=== PATIENT | female | born 1955 | race Caucasian/White ===

== ENCOUNTER → 2022-06-16 | Outpatient (CLI) | payer MEDICARE ==
[2022-06-16 16:38] LABS: INR 0.9 (<1.2); Partial Thromboplastin Time 25.9 sec (22.0-30.0)
[2022-06-17 02:02] LABS: Appearance,Urine Clear (Clear); Bilirubin,Urine Negative (Negative); Blood,Urine Negative (Negative); Color,Urine Yellow (Yellow); Ketones,Urine Negative (Negative); Nitrite,Urine Negative (Negative); Specific Gravity,Urine 1.022 (1.001-1.030); Urobilinogen,Urine 0.2 (0.2,1.0)
[2022-06-17 02:24] LABS: HCT 42.3 % (37.2-46.3); HGB 13.7 g/dL (12.0-15.0); MCH 30.1 pg (27.0-32.0); MCHC 32.4 g/dL (32.0-37.0); NRBC Per 100 WBC 0 /100 WBCS (0.0-0.0); Platelet Count 291 X 10*3/uL (140-440); RBC 4.55 X 10*6/uL (4.10-5.20); RDW 12.8 % (11.5-14.5); WBC 7.04 X 10*3/uL (4.50-10.00)
[2022-06-17 02:42] LABS: ALT 24 U/L (8-44); AST 25 U/L (13-35); African American GFR (CKD) 105.4 (60.0-200.0); Albumin 4.9 g/dL (3.8-4.9); Albumin/Globulin Ratio 1.53 (1.60-3.17); Alkaline Phosphatase 74 U/L (41-126); BUN/Creat Ratio 22.14 Ratio (12.00-20.00); Blood Urea Nitrogen 15.5 mg/dL (9.0-27.0); Calcium 10.3 mg/dL (8.7-10.3); Carbon Dioxide 24.9 mmol/L (20.0-27.5); Chloride 103 mmol/L (96-109); Chol/HDL Ratio 5.06 Ratio; Globulin 3.2 g/dL (1.6-3.3); Glucose 81 mg/dL (70-110); LDL Cholesterol,Calculated 123.4 mg/dL (0.0-131.0); Non-African American GFR(CKD) 90.9 (60.0-200.0); Potassium 4.6 mmol/L (3.5-5.5); Sodium 141 mmol/L (135-145); Total Protein 8.1 g/dL (6.2-8.2)
== END | disposition home or self-care (01) ==
LOC: LABPAT 14:18
PROVIDERS: ATTEND Orthopaedic Surgery
DX: Z01.818 Encounter for other preprocedural examination (principal); R73.09 Other abnormal glucose; E78.2 Mixed hyperlipidemia
CPT/HCPCS: 80053; 80061; 81003; 83036; 85027; 85610; 85730; 87070; 93005

== ENCOUNTER 2022-06-24 14:05 | Day surgery (SDC) | payer MEDICARE ==
[~2022-06-24 14:05] MED LIST: ACETAMINOPHEN TAB 500 MG TAB PO PRN; DEXAMETHASONE SOD PHOSPHATE 10 MG/ML 1 ML VIAL IV PRN; DOCUSATE 100 MG CAP PO PRN; FAMOTIDINE 20 MG/2 ML VIAL IVP PRN; HYDROmorphone 0.5 MG/0.5 ML SYRINGE IVP PRN; KETOROLAC 15 MG/ML 1 ML VIAL IVP PRN; LIDOCAINE 1% (10MG/ML) FOR IV START INTRADERMA PRN; MIDAZOLAM 2 MG/2 ML VIAL IV PRN; ONDANSETRON 4 MG/2 ML VIAL IVP PRN; ROPIVACAINE/EPI/CLONIDINE/KET 50 ML SYRINGE MISCELLANE PRN; TRANEXAMIC ACID IN NACL,ISO-OS 1,000 MG in SALINE 1 100ML.BAG IV PRN; TRANEXAMIC ACID IN NACL,ISO-OS 1,000 MG in SALINE 1 100ML.BAG IVPB PRN; VANCOMYCIN 1,500 MG in SODIUM CHLORIDE 0.9% 500 ML 500 ML IVPB ONE; fentaNYL (PF) 50 MCG/ML 2 ML AMP IVP PRN; oxyCODONE ER 10 MG TAB.ER.12H PO PRN
[2022-06-24] MEDS: LACTATED RINGERS 1,000 ML IV SCH ×2 (14:45→14:54)
[2022-06-24] MEDS ORDERED: fentaNYL (PF) 50 MCG/ML 2 ML AMP IVP ONE (15:12)
[2022-06-24] MEDS ORDERED: MIDAZOLAM 2 MG/2 ML VIAL IVP ONE (15:12)
--- NOTE | 2022-06-24 15:46 | P.ANPRN ---
Procedure Note - Anesthesia - Nerve Block Performed Left Irvin Single Date of Procedure: 06/24/22 Procedure Start Time: 15:11 Procedure Stop Time: 15:21 Location of Patient: PreOp Indication: Acute Post-Operative Pain, Requested by Surgeon Sedation Type: Sedate with meaningful contact maintained Preparation: Sterile Prep Position: Supine Catheter: None Needle Types: Facet Needle Gauge: 21 Ultrasound used to visualize needle placement: Yes Ultrasound used to observe medication spread: Yes Injectate: 0.5% Ropivacaine (see comment for volume) (20 mls) Blood Aspirated: No Pain Paresthesia on Injection Noted: No Resistance on Injection: Normal Image Stored and Saved: Yes Events: Uneventful and Well Tolerated
[2022-06-24] MEDS ORDERED: HYDROmorphone (PF) 1 MG/ML ONE (16:42)
[2022-06-24] MEDS ORDERED: ROPIVACAINE 5 MG/ML 30 ML VIAL ONE (16:42)
[2022-06-24] MEDS ORDERED: TRANEXAMIC ACID IN NACL,ISO-OS 1,000 MG/100 ML BAG ONE (16:42)
[2022-06-24] MEDS ORDERED: SODIUM CHLORIDE 0.9% (PF) 10 ML VIAL ONE (16:42)
[2022-06-24] MEDS ORDERED: SUCCINYLCHOLINE CHLORIDE 200 MG/10 ML VIAL IV ONE (16:42)
[2022-06-24] MEDS ORDERED: MIDAZOLAM 2 MG/2 ML VIAL ONE (16:42)
[2022-06-24] MEDS ORDERED: ROCURONIUM 10 MG/ML (5 ML VIAL) IV ONE (16:42)
[2022-06-24] MEDS ORDERED: PROPOFOL 10 MG/ML 20 ML VIAL IV ONE (16:42)
[2022-06-24] MEDS ORDERED: GLYCOPYRROLATE 0.2 MG/ML 2 ML VIAL ONE (16:42)
[2022-06-24] MEDS ORDERED: ePHEDrine 50 MG/ML 1 ML VIAL ONE (16:42)
[2022-06-24] MEDS ORDERED: fentaNYL (PF) 50 MCG/ML 2 ML AMP ONE (16:42)
[2022-06-24] MEDS ORDERED: LIDOCAINE 2% INJ 20 MG/ML (2 ML VIAL) ONE (16:42)
[2022-06-24] MEDS ORDERED: NEOSTIGMINE 1 MG/ML 10 ML VIAL ONE (16:42)
[2022-06-24] MEDS ORDERED: HYDROmorphone 0.5 MG/0.5 ML SYRINGE IVP PRN ×3 (19:25)
[2022-06-24] MEDS ORDERED: HYDROcodone/APAP 5-325MG 1 EACH TAB PO PRN (19:25)
[2022-06-24] MEDS ORDERED: hydrOXYzine pamoate 25 MG CAP PO PRN (19:25)
[2022-06-24] MEDS ORDERED: NALOXONE 0.4 MG/ML 1 ML VIAL IV PRN (19:25)
[2022-06-24] MEDS ORDERED: LACTATED RINGERS 1,000 ML IV SCH (19:30)
--- NOTE | 2022-06-24 19:33 | FL ---
Intraoperative/procedural fluoroscopic services were provided. Total fluoroscopy time is 43 seconds w ith a total of 8 submitted images to PACS. Please see the operative/procedural note for further detai ls. DAP: 2.4030
[2022-06-24 19:38] VITALS: RESP 16
[2022-06-24] MEDS ORDERED: SENNOSIDES-DOCUSATE SODIUM 1 EACH TAB PO SCH (21:00)
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
--- NOTE | 2022-06-24 21:08 | P.OP ---
Date of Procedure: 06/24/22 Preoperative Diagnosis: 1. Severe left hip osteoarthritis 2. BMI 35.2 3. Hypertension Postoperative Diagnosis: Same Procedure(s) Performed: 1. Left direct anterior total hip replacement 2. Application of negative pressure wound dressing, left hip, less than 50 cm, incision measuring 20 cm (an incisional wound VAC was used to the patient's BMI over 35 and her body habitus) Implants: 1. Mari Trident II Acetabular Cup, Size #48 2. [place] Insignia Size # 5 Femoral Stem, Standard Offset 3. Biolox delta femoral head, 36 mm, - 2.5 neck Anesthesia: NELI, regional Surgeon: Oral Farmer Heat Treat Supervisor #1: Emilia Chang Estimated Blood Loss (ml): 500 IV fluids (ml): 1,000 Pathology: none sent Condition: stable Disposition: PACU Indications for Procedure: I had a long discussion with the patient in the office on the potential risks and complications of an elective total hip replacement through a direct anterior approach. Risks discussed include, but are certainly not limited to, risks from anesthesia, superficial infection requiring local wound care or antibiotics, deep catracho-prosthetic joint infection and the treatment required to eradicate infection, intraoperative fracture, postoperative periprosthetic fracture, damage to local blood vessels or nerves particularly the lateral femoral cutaneous nerve, delayed wound healing requiring local wound care or possibly surgical debridement, hip dislocation, leg length discrepancy, soft tissue irritation around the total hip implant such as iliopsoas tendinitis or trochanteric bursitis, wear and osteolysis from the implants, squeaking or audible noises, groin pain, thigh pain, heterotopic ossification, stiffness, aseptic loosening of the implants, dissatisfaction with surgical outcome, need for revision surgery, DVT, PE, swelling of the operative extremity, acute coronary event, stroke, failure to thrive, and possibly loss of life or limb. The patient understands that while these are the most common complications after an elective hip replacement there are certainly other less common complications possible. They were given ample time to ask questions regarding the potential complications of a hip replacement. Following our discussion the patient provided their verbal and written consent to go forward with an elective total hip replacement. Operative Findings: Severe left hip posterior arthritis Description of Procedure: The patient was identified in the preoperative holding area and the correct hip was marked with my initials. I reviewed the procedure and consent with the patient. All of their questions were answered. The patient was then brought back into the operating room by anesthesia. While on the [facility] anesthesia was administered by the anesthesia team. Preoperative antibiotics and tranexamic acid were also given. After the patient was under anesthesia I examined their ankles to determine their preoperative leg length discrepancy. The skin over the anterior aspect of the hip was shaved to remove hair over the site of planned incision. Both feet and ankles were padded with webril and boots for the [place] were applied. The patient was then carefully transferred onto the [place] table. A perineal post was immediately placed. The arms were placed on arm holders and were well-padded. Both boots were secured to the spars on the [place] table. The patient was positioned so that the pelvis was centered over the post. Nonsterile drapes were applied. A timeout was performed identifying the correct patient, operative extremity, and procedure. At this point fluoroscopy was brought in to take preoperative images of the pelvis and operative hip. Using the standing AP pelvis from the office as a template, a comparable image was obtained with fluoroscopy. A metallic bar was used to create a bi-ischial line for use as a reference to leg length adjustments during the procedure. Global offset was also measured on both the operative and nonoperative leg. Fluoroscopy was then brought out and a pre-scrub using a chlorhexidine scrub brush was performed. The operative limb was then prepped and draped in the standard sterile fashion. An anterior longitudinal incision was made lateral and distal to the ASIS. The skin and subcutaneous tissues were incised sharply. The underlying tensor fascia was identified and incised in its midportion. The fascia was dissected free from the underlying muscle and the muscle belly was retracted. A blunt tipped cobra retractor was placed over the superior neck under the muscle fibers of the gluteus minimus. The deep enveloping fascia of the tensor was incised. The anterior leash of vessels were then identified and cauterized. The fascia between the rectus and the capsule was then incised and the pre-capsular fat was excised. A second Cobra was placed inferior to the neck. The interval between the rectus and iliocapsularis and the hip capsule was developed and a retractor was placed carefully over the anterior rim of the acetabulum. A T-shaped anterior capsulotomy was performed. The superior capsular leaflet was left in place in the inferior capsular flap was excised. The Cobra retractors were placed intracapsularly. We then made a femoral neck osteotomy according to preoperative and intraoperative templating and confirmed the level of the osteotomy using fluoroscopic imaging. The femoral head was removed, passed off to the back table, and sized. The superior capsular flap was excised. Retractors were placed circumferentially exposing the acetabulum. We then circumferentially debrided the acetabulum free of labrum and osteophytes. The pulvinar was removed to fully visualize the cotyloid fossa. We then sequentially reamed to achieve peripheral fit and excellent bleeding subchondral bone. The socket was thoroughly irrigated. The acetabular component was impacted into the appropriate position using fluoroscopy to guide version, inclination, and depth of insertion taking care to have a comparable image of the AP pelvis to the standing image taken in the office. An excellent press-fit was achieved and final position was confirmed using fluoroscopy. The press fit was augmented with bony cancellus dome screws. The liner was then impacted into the socket. Attention was then turned to the femur. The remnant dorsal lateral capsule was excised. The short external rotators were visible and protected. A bone hook was used to confirm appropriate translation of the trochanter away from the acetabulum. The leg was then extended and adducted and the bone hook was used to elevate the femur for broaching. A box osteotome and blunt tipped canal sound was then utilized to gain access to the femoral canal. We then sequentially broached the femur in appropriate anteversion until excellent torsional stability was achieved. The neck cut was brought flush to the trial broach with a calcar planar. A trial neck and head were then placed onto the broach and the hip was atraumatically reduced under direct visualization. External rotation to 90 was performed to assess stability. Fluoroscopy was brought in. An AP and lateral fluoroscopic image of the proximal femur was obtained to assess position and fill of the trial broach. An AP of the pelvis was then obtained and matched to the preoperative image taken. A bi-ischial bar was then placed and measurements were taken to assess changes in length and offset. The hip was then carefully dislocated, the proximal femur was exposed, and the trial implants were removed. The wound and proximal femur was thoroughly irrigated using sterile saline and pulsatile lavage. The final femoral implant was dispensed and gently tapped into place generating an excellent press-fit. The trunnion was cleansed and the final head was tapped into place to engage the Lozada taper. The acetabulum was irrigated and visualized to be free of debris. The hip was carefully reduced. Stability was checked clinically with external rotation to 90 and there was no evidence of instability. Final fluoroscopic images were taken. The wound was then thoroughly irrigated and soaked with a dilute Betadine rinse for 3 minutes. 3 L of sterile saline was irrigated through the wound using pulsatile lavage. Local anesthetic cocktail was injected into the soft tissues around the surgical field. A deep drain was placed. The wound was then closed in layers. Due to the patient's body habitus and BMI 35 an incisional wound VAC was placed after the wound was closed. A drain sponge and dressing was also applied. The drapes were taken down and the patient was carefully transferred off of the [place] table. Following removal of the boots the leg lengths felt acceptable. The patient was then taken to recovery room having tolerated the procedure well. Emilia Chang PA-C was required as a skilled physician assistant certified for patient positioning, surgical exposure, retraction, placement of implants, and closure of the surgical wound. PLAN: The patient can weight-bear as tolerated on the operative extremity. 2 doses of postoperative antibiotics. DVT prophylaxis with aspirin 81 mg twice a day based on preoperative risk stratification. Physical therapy for gait training. Discontinue drain postoperative day #1 if output is less than 100 mL per shift. Incisional wound VAC will be left in place for 2 weeks. Due to the patient's BMI 35 an body habitus she'll be discharged home on doxycycline.
[2022-06-24] MEDS: ASPIRIN 81 MG PO SCH (22:44)
[2022-06-25] MEDS: HYDROcodone/APAP 5-325MG 1 EACH TAB PO PRN ×2 (01:07→08:25)
[2022-06-25 06:58] LABS: Basophils % (A) 0 %; Eosinophils % (A) 0 %; HCT 30.8 % (34.0-46.0); HGB 10.3 gm/dL (11.4-16.0); Lymphocytes # (A) 0.9 k/uL (1.0-4.8); Lymphocytes % (A) 8 %; MCH 30.1 pg (25.0-35.0); MCHC 33.5 g/dL (31.0-37.0); Mean Platelet Volume 7.9; Monocytes # (A) 0.4 k/uL (0-1.0); Monocytes % (A) 4 %; Neutrophils # (A) 10.6 k/uL (1.3-7.7); Neutrophils % (A) 89 %; Platelet Count 255 k/uL (150-450); RBC 3.43 m/uL (3.80-5.40); RDW 13.1 % (11.5-15.5); WBC 11.9 k/uL (3.8-10.6)
[2022-06-25 07:34] VITALS: BP 130/77; PULSE 79; TEMP 98.8
[2022-06-25] MEDS: ASPIRIN 81 MG PO SCH (08:23)
--- NOTE | 2022-06-25 13:13 | P.CONS ---
History of Present Illness - Reason for Consult Consult date: 06/25/22 medical management Requesting physician: Oral Farmer - History of Present Illness Notified of medical consult at 8:45 AM on 06/25/22. History of Presenting Illness: Patient is a very pleasant 66-year-old female with a past medical history of hypertension, GERD, and osteoarthritis. patient is currently status post left cataract anterior total hip replacement completed by Dr. Farmer on 06/24/22 secondary to severe left hip osteoarthritis. We were consulted for medical evaluation and consultation throughout patient's hospitalization. patient seen and fully evaluated at bedside this morning. Patient sitting up in the chair and currently reports controlled postoperative pain. She denies having any po stoperative nausea, vomiting, headache, lightheadedness, chest pain, palpitations, shortness of breath, cough or congestion, or experiencing any numbness/tingling/focal weakness in her extremities. Patient reports working with PT this morning and doing well. Patient's daughter at bedside. Vital signs reviewed and stable with morning blood pressure 130/77, heart rate 79, respiratory rate 16, and SpO2 of 94% on room air with temperature 98.8F.. Review of systems: Pertinent positives and negatives as discussed in HPI, a complete review of systems was performed and all other systems are negative. Physical exam: Vital signs reviewed and stable. General: Nontoxic, no distress and appears stated age. Derm: Skin warm and dry, normal coloration for ethnicity. Head: Atraumatic, normocephalic and symmetric. Eyes: EOMs intact, no lid lag, and anicteric sclera Mouth: no lip lesions, mucus membranes moist Cardiovascular: regular rate and rhythm with normal S1S2, no murmur, positive posterior tibial pulses bilaterally, and cap refill < 2 seconds. Lungs: Respirations even, regular, and unlabored on room air. Lungs CTA bilaterally, no rhonchi, no rales, no wheezing, and no accessory muscle usage. Abdominal: soft, nontender to palpation, no guarding, no appreciable organomegaly Ext: ROM intact. No gross muscle atrophy, no edema, no contractures Neuro: Speech clear, face symmetrical and CN II-XII grossly intact with no noted focal neuro deficits Psych: Alert and oriented to person, place, time, and situation. Appropriate and pleasant affect. Assessment and Plan of Care: Postoperative blood loss anemia, expected finding Leukocytosis Hypertension GERD Osteoarthritis Status post left total hip replacement -Reviewed morning labs. CBC showing mild leukocytosis with WBC count of 11.9 which is stable believed to be elevated due to reactive process status post surgical procedure and Postoperative hemoglobin stable at 10.3 with preoperative hemoglobin reviewed in chart resulting at 13.7. patient with no active bleeding therefore no need for interventions and recommend no further testing at this time. -Home medications reviewed and reordered. Recommend patient continuing metoprolol 25 mg daily for management of hypertension, Zetia 10 mg daily for management of hyperlipidemia, and omeprazole 40 mg daily for management of GERD. -Medically, patient stable for discharge once cleared by primary admitting orthopedic surgery team. Discussed with orthopedic surgery PA that patient cleared from medical standpoint for discharge. Discharge med rec completed. -management of left total hip replacement per primary admitting orthopedic surgery team including DVT prophylaxis, pain management, weightbearing, and PT/OT. -Patient currently on DVT prophylaxis with aspirin 81 mg twice daily. Thank you for allowing us to participate in the care of this pleasant patient. Do not hesitate to contact us with questions. Someone can be reached from the [facility] hospitalist group all hours of the day at [phone] or via [employer]. Patient was seen independently by Nurse Practitioner. This document was prepared using [employer] dictation software. Please allow for errors in manager concrete while rare they do occur. Past Medical History Past Medical History: GERD/Reflux, Hypertension, Osteoarthritis (OA) Additional Past Medical History / Comment(s): possible sleep apnea but no sleep study done History of Any Multi-Drug Resistant Organisms: None Reported Past Surgical History: Breast Surgery Additional Past Surgical History / Comment(s): excision infected milk duct left breast, colonoscopy Past Anesthesia/Blood Transfusion Reactions: No Reported Reaction Past Psychological History: Anxiety Smoking Status: Former smoker Past Alcohol Use History: Occasional Additional Past Alcohol Use History / Comment(s): quit smoking 8 yrs. ago, smoked on & off 30 yrs., 1/2-1ppd, 2-3 glasses wine per week Past Drug Use History: Marijuana Additional Drug Use History / Comment(s): 1/3 edible in evening most nights to help sleep - Past Family History Mother Family Medical History: No Reported History Medications and Allergies Home Medications Medication Instructions Recorded Confirmed Type Ezetimibe [Zetia] 10 mg PO DAILY 06/18/22 06/24/22 History Metoprolol Succinate [Metoprolol 25 mg PO DAILY 06/18/22 06/24/22 History Succinate ER] Acetaminophen [Tylenol Arthritis] 650 mg PO Q6H PRN 06/19/22 06/24/22 History Naproxen Sodium [Aleve] 220 mg PO BID PRN 06/19/22 06/24/22 History [place]-3 Acid Ethyl Esters [Lovaza] 2 gm PO DAILY 06/19/22 06/24/22 History Aspirin 81 mg PO BID 30 Days #60 tab 06/25/22 Rx Diclofenac Sodium [Voltaren] 75 mg PO BID 30 Days #60 tab 06/25/22 Rx Docusate [Colace] 100 mg PO BID #60 capsule 06/25/22 Rx HYDROcodone/APAP 5-325MG [[place] 1 - 2 tab PO Q6HR PRN 7 Days #32 06/25/22 Rx 5-325] tab Omeprazole 40 mg PO DAILY 30 Days #30 cap 06/25/22 Rx Allergies Allergy/AdvReac Type Severity Reaction Status Date / Time fenofibrate [From Tricor] AdvReac kidney Verified 06/24/22 14:40 dysfunction Physical Exam Vitals: Vital Signs Temp Pulse Pulse Resp BP BP Pulse Ox 06/25/22 06:55 98.8 F 79 16 130/77 94 L 06/25/22 02:00 97.9 F 76 16 119/68 95 06/25/22 00:34 65 162/80 97 06/25/22 00:33 71 134/65 95 06/25/22 00:32 63 128/72 94 L 06/25/22 00:31 73 118/73 97 06/25/22 00:30 66 104/55 97 06/25/22 00:20 77 103/57 95 06/24/22 19:51 69 16 126/58 98 06/24/22 19:36 65 16 119/55 97 06/24/22 19:21 97.3 F L 72 14 137/61 96 06/24/22 15:30 58 L 16 135/79 98 06/24/22 14:49 97.0 F L 75 16 155/72 95 Intake and Output 06/24/22 06/25/22 06/25/22 22:59 06:59 14:59 Intake Total 1600 Output Total 500 Balance 1100 Intake: IV 1600 Output: Estimated Blood Loss 500 Other: # Voids 5 1 Weight 108 kg Results CBC & Chem 7: 06/25/22 05:30 Labs: Abnormal Lab Results - Last 24 Hours (Table) 06/25/22 Range/Units 05:30 WBC 11.9 H (3.8-10.6) k/uL RBC 3.43 L (3.80-5.40) m/uL Hgb 10.3 L (11.4-16.0) gm/dL Hct 30.8 L (34.0-46.0) % Neutrophils # 10.6 H (1.3-7.7) k/uL Lymphocytes # 0.9 L (1.0-4.8) k/uL
[2022-06-25] MEDS ORDERED: METOPROLOL SUCCINATE (ER) 25 MG TAB.ER.24H PO SCH (13:30)
[2022-06-25] MEDS ORDERED: EZETIMIBE 10 MG TAB PO SCH (13:30)
--- NOTE | 2022-06-25 15:34 | P.DS ---
Providers Expected date of discharge: 06/25/22 Attending physician: Oral Farmer Consults: 06/24/22 19:25 Consult Physician Routine Consulting Provider: Cesar Vyas Consult Reason/Comments: medical management Do you want consulting provider notified?: Yes Primary care physician: Divya Ramirez MD Hospital Course: This is a 66-year-old female who has been followed in our office by Dr. Farmer for continued complaints of left hip pain due to left hip osteoarthritis. Treatment options were discussed, and patient elected to undergo a left direct anterior total hip arthroplasty. Patient was seen pre-operatively by Dr. Ramirez and cleared for surgery. Patient underwent a left direct anterior total hip arthroplasty on 06/24/[address] Farmer. The procedure was performed without complication or sequelae. The patient is doing fairly well postoperatively. Vital signs and labs are stable on postoperative day #1. Patient was examined bedside this morning with Dr. Farmer. Patient states she is overall doing well and the pain in her left hip is well-controlled. She has been ambulating with a walker with minimal assistance. Patient is comfortable being discharged home today. Patient has no new complaints this morning. On examination, the patient is sitting up in bed in no apparent distress. She is alert and orientated 3. On inspection of the left hip, there is a clean, dry, intact Prevena wound vac in place. Hemovac drain is removed bedside during examination. Motor and sensory function is intact of the left lower extremity. Femoral nerve function intact. The dorsalis pedis pulse is easily palpable, the left lower extremity is warm and well perfused with brisk capillary refill. Left calf is soft and non-tender to palpation. Patient is discharged home with home health care today in good condition, pending medical clearance. Patient will follow-up with Dr. Farmer in the office in 2 weeks at [facility]. Please see med rec for accurate list of discharge medication. Plan - Discharge Summary Discharge Rx Participant: Yes New Discharge Prescriptions: New HYDROcodone/APAP 5-325MG [Trinity 5-325] 1 - 2 tab PO Q6HR PRN 7 Days #32 tab PRN Reason: Pain Omeprazole 40 mg PO DAILY 30 Days #30 cap Diclofenac Sodium [Voltaren] 75 mg PO BID 30 Days #60 tab Aspirin 81 mg PO BID 30 Days #60 tab Docusate [Colace] 100 mg PO BID #60 capsule Doxycycline Monohydrate 100 mg PO BID 14 Days #28 cap Continue Ezetimibe [Zetia] 10 mg PO DAILY [place]-3 Acid Ethyl Esters [Lovaza] 2 gm PO DAILY Acetaminophen [Tylenol Arthritis] 650 mg PO Q6H PRN PRN Reason: Pain Metoprolol Succinate [Metoprolol Succinate ER] 25 mg PO DAILY No Action Naproxen Sodium [Aleve] 220 mg PO BID PRN PRN Reason: Pain Discharge Medication List Ezetimibe [Zetia] 10 mg PO DAILY 06/18/22 [History] Metoprolol Succinate [Metoprolol Succinate ER] 25 mg PO DAILY 06/18/22 [History] Acetaminophen [Tylenol Arthritis] 650 mg PO Q6H PRN 06/19/22 [History] Naproxen Sodium [Aleve] 220 mg PO BID PRN 06/19/22 [History] [place]-3 Acid Ethyl Esters [Lovaza] 2 gm PO DAILY 06/19/22 [History] Aspirin 81 mg PO BID 30 Days #60 tab 06/25/22 [Rx] Diclofenac Sodium [Voltaren] 75 mg PO BID 30 Days #60 tab 06/25/22 [Rx] Docusate [Colace] 100 mg PO BID #60 capsule 06/25/22 [Rx] Doxycycline Monohydrate 100 mg PO BID 14 Days #28 cap 06/25/22 [Rx] HYDROcodone/APAP 5-325MG [Trinity 5-325] 1 - 2 tab PO Q6HR PRN 7 Days #32 tab 06/25/22 [Rx] Omeprazole 40 mg PO DAILY 30 Days #30 cap 06/25/22 [Rx] Follow up Appointment(s)/Referral(s): Residential Home,[facility] [NON-STAFF] - 1-2 Days Oral Farmer MD [Medical Doctor] - 07/08/22 10:20 am Patient Instructions/Handouts: Anterior Hip Replacement (DC) Activity/Diet/Wound Care/Special Instructions: Weight bear to tolerance on operative extremity with a walker. Keep Prevena wound vac in place until follow-up in the office. Do not remove. May shower over dressing. Take pain medications as prescribed. Take aspirin 81mg twice a day for blood clot prevention. Follow-up in the office in two weeks at [facility]. Call the office with any questions or concerns, Discharge Disposition: HOME WITH HOME HEALTH SERVICES
== END 2022-06-25 13:57 | disposition home health service (06) ==
LOC: OR 14:05 → 4SSUR 19:17 → OR 06-25 13:57
PROVIDERS: ATTEND Orthopaedic Surgery
DX: M16.12 Unilateral primary osteoarthritis, left hip (principal); E66.9 Obesity, unspecified; Z68.35 Body mass index [BMI] 35.0-35.9, adult; G89.18 Other acute postprocedural pain; I10 Essential (primary) hypertension; E78.5 Hyperlipidemia, unspecified; F10.20 Alcohol dependence, uncomplicated; Z82.49 Family history of ischemic heart disease and other diseases of the circulatory system; Z83.3 Family history of diabetes mellitus; Z87.891 Personal history of nicotine dependence; Z79.1 Long term (current) use of non-steroidal anti-inflammatories (NSAID); Z79.899 Other long term (current) drug therapy
CPT/HCPCS: 27130; 97161; 64447; 86900; 86901; 85025; 86850; 73501; C1776; J2250; J3370; J0330; J2710; J0690 ×2; J2405; J3010; J1170; J2795; J1885; J2704; J2001; 88300

== ENCOUNTER → 2022-10-15 | Outpatient (CLI) | payer MEDICARE ==
--- NOTE | 2022-10-15 13:38 | MM ---
Reason for Exam: Follow-up at short interval from prior study. Last screening mammogram was performed 6 month(s) ago. Patient History: Menarche at age 14. First Full-Term at age 22. Postmenopausal. Paternal aunt had breast cancer. Mother had breast cancer at or over age 50. Risk Values: Chitra 5 year model risk: 3.2%. NCI Lifetime model risk: 11.7%. Tissue Density: Left: The breast tissue is heterogeneously dense. This may lower the sensitivity of mammography. Findings: Analyzed By CAD. Previous areas of desiccation are not significantly changed. Given the stability, back to screening is recommended. No new suspicious masses, calcifications or distortions. Overall Assessment: Benign, BI-RAD 2 Management: Screening Mammogram of both breasts in 6 months. Results were given to the patient verbally at the time of exam. Patient should continue monthly self-breast exams. A clinical breast exam by your physician is recommended on an annual basis. This exam should not preclude additional follow-up of suspicious palpable abnormalities. Note on Chitra scores and lifetime risk: 1. A Chitra score greater than 3% is considered moderate risk. If this is the case, consider specialist referral to assess eligibility for a risk reducing agent. 2. If overall lifetime risk for the development of breast cancer is 20% or higher, the patient may qualify for future screening with alternating mammogram and breast MRI. Electronically signed and approved by: Danish Vincent DO
== END | disposition home or self-care (01) ==
LOC: RADMAMWWP 13:01
PROVIDERS: ATTEND Internal Medicine
DX: R92.8 Other abnormal and inconclusive findings on diagnostic imaging of breast (principal); Z78.0 Asymptomatic menopausal state; Z80.3 Family history of malignant neoplasm of breast
CPT/HCPCS: 77065; G0279; 77061

== ENCOUNTER → 2023-04-26 | Outpatient (CLI) | payer MEDICARE ==
--- NOTE | 2023-04-26 16:28 | MM ---
Reason for Exam: Screening (asymptomatic). Last screening mammogram was performed 12 month(s) ago. Patient History: Menarche at age 14. First Full-Term at age 22. Postmenopausal. Paternal aunt had breast cancer. Mother had breast cancer at or over age 50. Risk Values: Chitra 5 year model risk: 3.2%. NCI Lifetime model risk: 11.3%. Prior Study Comparison: 04/24/2022 Bilateral MG 3D screening mammo w/cad, [facility]. 04/28/2022 Left MG 3D work up w/cad LT, [facility]. 10/15/2022 Left MG 3D diag mammo w/cad LT, [facility]. Tissue Density: The breast tissue is heterogeneously dense. This may lower the sensitivity of mammography. Findings: Analyzed By CAD. The pattern is symmetrical. 9 spherical calcifications right breast. Benign vascular calcifications within the left breast. Few scattered punctate calcifications are present bilaterally. There are some grouped punctate calcifications within the inner anterior left breast 9:00 position 3 cm from the nipple. These are new from comparison. Additional workup of these breast calcifications is recommended Right breast:No suspicious groups of microcalcifications, spiculated or lobular masses, architectural distortion or other secondary signs of malignancy are mammographically apparent. Overall Assessment: Incomplete: need additional imaging evaluation, BI-RAD 0 Management: Diagnostic Mammogram of the left breast. A negative mammogram report should not preclude additional follow up of suspicious palpable abnormalities. Patient should continue monthly self breast exam. A clinical breast exam by your physician is recommended on an annual basis and results should be correlated with mammographic findings. Electronically signed and approved by: Raj Pacheco D.O. Radiologis
--- NOTE | 2023-04-26 16:59 | BD ---
EXAMINATION TYPE: Axial Bone Density DATE OF EXAM: 04/26/2023 CLINICAL HISTORY: 67 years old Female. ICD-10 CODE: Z78.0 ASYMPTOMATIC MENOPAUSAL STA Height: 68.5 Weight: 230.5 FRAX RISK QUESTIONS: Alcohol (3 or more units per day): no Family History (Parent hip fracture): no Glucocorticoids (More than 3mos): no (Ex: prednisone, prednisolone, methylprednisolone, dexamethasone, and hydrocortisone). History of Fracture in Adulthood: no Secondary Osteoporosis: 1. Type 1 Diabetes: no 2. Hyperthyroidism: no 3. Menopause before 45: no 4. Malnutrition: no 5. Chronic liver disease: no Rheumatoid Arthritis: no Current Tobacco Use: no RISK FACTORS HISTORY OF: History of Wrist Fracture: right When: as a child Surgery to Spine/Hip(right/left)/Wrist (right/left): left hip replaced When: 2022 EXAM MEASUREMENTS: Bone mineral densitometry was performed using the [employer]. Bone mineral density as measured about the Lumbar spine is: ----- L1-L4(G/cm2): 1.102 T Score Values are as follows: ----- L1: -0.9 ----- L2: -1.3 ----- L3: -0.4 ----- L4: -0.2 ----- L1-L4: -0.7 Z Score Values are as follows: ----- L1: -0.5 ----- L2: -0.9 ----- L3: 0.0 ----- L4: 0.2 ----- L1-L4: -0.2 Bone mineral density : baseline Bone mineral density about the L hip (g/cm2): 0.776 T Score values are as follows: -----L Neck: -2.2 -----L Total: -1.4 Z Score values are as follows: -----L Neck: -1.8 -----L Total: -1.4 Bone mineral density : baseline FRAX%s: The graph provided illustrates a 11.1% chance for a major osteoporotic fx and a 1.9% chance f or the hips probability for fx in 10 years time. IMPRESSION: Osteopenia (T Score between -2.5 and -1). There is slightly increased risk of fracture and the patient may be considered for treatment. Re-Screen 2-5 years. NOTE: T-SCORE=SD OF THE YOUNG ADULT MEAN.
== END | disposition home or self-care (01) ==
LOC: RADMAMWWP 10:59
PROVIDERS: ATTEND Family Medicine
DX: Z12.31 Encounter for screening mammogram for malignant neoplasm of breast (principal); M85.89 Other specified disorders of bone density and structure, multiple sites; Z78.0 Asymptomatic menopausal state; Z80.3 Family history of malignant neoplasm of breast
CPT/HCPCS: 77063; 77067; 77080

== ENCOUNTER → 2023-04-29 | Outpatient (CLI) | payer MEDICARE ==
--- NOTE | 2023-04-29 11:28 | MM ---
Reason for Exam: Additional evaluation requested from abnormal screening. Last screening mammogram was performed less than 1 month ago. Patient History: Menarche at age 14. First Full-Term at age 22. Postmenopausal. Paternal aunt had breast cancer. Mother had breast cancer at or over age 50. Risk Values: Chitra 5 year model risk: 3.2%. NCI Lifetime model risk: 11.3%. Prior Study Comparison: 04/28/2022 Left MG 3D work up w/cad LT, [facility]. 10/15/2022 Left MG 3D diag mammo w/cad LT, [facility]. 04/26/2023 Bilateral MG 3D screening mammo w/cad, [facility]. Tissue Density: Left: The breast tissue is heterogeneously dense. This may lower the sensitivity of mammography. Findings: Analyzed By CAD. The questioned medial group calcifications anterior depth are not clearly identified on the magnification views. An area of asymmetric density inferiorly on the lateral view does not persist on spot review. Six-month follow-up recommended. Overall Assessment: Probably benign, BI-RAD 3 Management: Diagnostic Mammogram of the left breast in 6 months. See note below in regards to patient's increased 5 year Chitra score. Results were given to the patient verbally at the time of exam. Patient should continue monthly self-breast exams. A clinical breast exam by your physician is recommended on an annual basis. This exam should not preclude additional follow-up of suspicious palpable abnormalities. Note on Chitra scores and lifetime risk: 1. A Chitra score greater than 3% is considered moderate risk. If this is the case, consider specialist referral to assess eligibility for a risk reducing agent. 2. If overall lifetime risk for the development of breast cancer is 20% or higher, the patient may qualify for future screening with alternating mammogram and breast MRI. Electronically signed and approved by: Calixto Decker M.D. Radiologist
== END | disposition home or self-care (01) ==
LOC: RADMAMWWP 10:36
PROVIDERS: ATTEND Family Medicine
DX: R92.332 Mammographic heterogeneous density, left breast (principal); Z80.3 Family history of malignant neoplasm of breast; Z78.0 Asymptomatic menopausal state
CPT/HCPCS: 77065; G0279; 77061

== ENCOUNTER → 2023-11-10 | Outpatient (CLI) | payer MEDICARE | END | disposition home or self-care (01) | LOC: LABWHC1 13:04 | PROVIDERS: ATTEND Orthopaedic Surgery | DX: M84.375D Stress fracture, left foot, subsequent encounter for fracture with routine healing (principal); E55.9 Vitamin D deficiency, unspecified | CPT/HCPCS: 36415; 82306 ==

== ENCOUNTER → 2023-11-10 | Outpatient (CLI) | payer MEDICARE ==
--- NOTE | 2023-11-10 13:24 | MM ---
Reason for Exam: Follow-up at short interval from prior study. Last screening mammogram was performed 7 month(s) ago. Patient History: Menarche at age 14. First Full-Term at age 22. Postmenopausal. Paternal aunt had breast cancer. Mother had breast cancer at or over age 50. Risk Values: Chitra 5 year model risk: 3.2%. NCI Lifetime model risk: 10.8%. Prior Study Comparison: 10/15/2022 Left MG 3D diag mammo w/cad LT, [facility]. 04/26/2023 Bilateral MG 3D screening mammo w/cad, [facility]. 04/29/2023 Left MG 3D work up w/cad LT, [facility]. Tissue Density: Left: The breasts are heterogeneously dense, which may obscure small masses. Findings: Analyzed By CAD. Chronic nodularity is again noted. No suspicious microcalcifications or masses seen. Overall Assessment: Benign, BI-RAD 2 Management: Screening Mammogram of both breasts in 6 months. . Results were given to the patient verbally at the time of exam. Patient should continue monthly self-breast exams. A clinical breast exam by your physician is recommended on an annual basis. This exam should not preclude additional follow-up of suspicious palpable abnormalities. Note on Chitra scores and lifetime risk: 1. A Chitra score greater than 3% is considered moderate risk. If this is the case, consider specialist referral to assess eligibility for a risk reducing agent. 2. If overall lifetime risk for the development of breast cancer is 20% or higher, the patient may qualify for future screening with alternating mammogram and breast MRI. Electronically signed and approved by: Ajay Allen M.D. Radiologis
== END | disposition home or self-care (01) ==
LOC: RADMAMWWP 12:59
PROVIDERS: ATTEND Family Medicine
DX: R92.1 Mammographic calcification found on diagnostic imaging of breast
CPT/HCPCS: 77061; 77065

== ENCOUNTER → 2023-12-14 | Outpatient (CLI) | payer MEDICARE ==
--- NOTE | 2023-12-14 13:27 | CTL ---
EXAMINATION TYPE: CT Low Dose Lung DATE OF EXAM ORDERED: 12/14/2023 HISTORY: Personal history of nicotine dependence, quit smoking 10 years ago, 20 pack year history. Shelbie ng cancer screening CT DLP: 113.[address] CTDI: 3.2 mGy Automated exposure control for dose reduction was used. SCREENING VISIT: First screening visit COMPARISON: None TECHNIQUE: Low dose computed tomography scan was performed through the chest at 1 mm thick sections a nd reconstructed images in multiple planes at 1 mm and [address] DIAGNOSTIC QUALITY: Satisfactory FINDINGS: Nodules: No clinically significant pulmonary nodule. LUNGS: COPD: Severity: None Fibrosis: Severity: None Lymph nodes: None Other findings: None RIGHT PLEURAL SPACE: Effusion: None Calcification: None Thickening: None Pneumothorax: None LEFT PLEURAL SPACE: Effusion: None Calcification: None Thickening: None Pneumothorax: None HEART: Heart Size: Normal Coronary Calcification: Moderate along the LAD. Pericardial Effusion: None OTHER FINDINGS: Upper abdomen: Hepatic 3.8 cm cyst. Bony thorax: DISH of the thoracic spine. Supraclavicular region: None Other: Patchy scarring or atelectasis within the right middle lobe and lingula. IMPRESSION: No clinically significant pulmonary nodule. CT LUNG RAD AND CT CHEST RECOMMENDATION: Lung-Rad 1 Negative: Continue annual screening with LDCT in 12 months. S Modifier (other clinically significant findings): None [facility], , 12/14/2023 1:25 PM
== END ==
LOC: RADCTMAIN 12:48
PROVIDERS: ATTEND Internal Medicine
CPT/HCPCS: 71271

== ENCOUNTER → 2024-05-18 | Outpatient (CLI) | payer MEDICARE ==
--- NOTE | 2024-05-18 12:05 | MM ---
Reason for Exam: Screening (asymptomatic). Last mammogram was performed 1 year(s) and 1 month(s) ago. Patient History: Menarche at age 14. First Full-Term at age 22. Postmenopausal. 07/13/1986, Benign Excisional Biopsy on the left side. Paternal aunt had breast cancer. Mother had breast cancer at or over age 50. Risk Values: Chitra 5 year model risk: 3.8%. NCI Lifetime model risk: 12.7%. Prior Study Comparison: 04/26/2023 Bilateral MG 3D screening mammo w/cad, [facility]. 04/29/2023 Left MG 3D work up w/cad LT, [facility]. 11/10/2023 Left MG 3D diag mammo w/cad LT, [facility]. Tissue Density: The breasts are extremely dense, which lowers the sensitivity of mammography. Findings: Analyzed By CAD. Benign appearing vascular calcification in the left breast is present. Benign-appearing bilateral axillary lymph nodes are seen. There is no suspicious new group of microcalcifications or new suspicious mass in either breast. Overall Assessment: Benign, BI-RAD 2 Management: Screening Mammogram of both breasts in 1 year. Some advise annual bilateral breast ultrasound surveillance in patients with background dense tissue. Patient should continue monthly self-breast exams. A clinical breast exam by your physician is recommended on an annual basis. This exam should not preclude additional follow-up of suspicious palpable abnormalities. Note on Chitra scores and lifetime risk: 1. A Chitra score greater than 3% is considered moderate risk. If this is the case, consider specialist referral to assess eligibility for a risk reducing agent. 2. If overall lifetime risk for the development of breast cancer is 20% or higher, the patient may qualify for future screening with alternating mammogram and breast MRI. [facility], , 05/18/2024 12:02 PM. Electronically signed and approved by: Alonso Mark M.D.
== END | disposition home or self-care (01) ==
LOC: RADMAMWWP 10:52
PROVIDERS: ATTEND Family Medicine
DX: Z12.31 Encounter for screening mammogram for malignant neoplasm of breast (principal); R92.343 Mammographic extreme density, bilateral breasts; Z78.0 Asymptomatic menopausal state; Z80.3 Family history of malignant neoplasm of breast
CPT/HCPCS: 77063; 77067

== ENCOUNTER → 2024-06-09 | Day surgery (SDC) | payer MEDICARE ==
[~2024-06-09] MED LIST changes: -ACETAMINOPHEN TAB 500 MG TAB PO PRN; -DEXAMETHASONE SOD PHOSPHATE 10 MG/ML 1 ML VIAL IV PRN; -DOCUSATE 100 MG CAP PO PRN; -FAMOTIDINE 20 MG/2 ML VIAL IVP PRN; -HYDROmorphone 0.5 MG/0.5 ML SYRINGE IVP PRN; -KETOROLAC 15 MG/ML 1 ML VIAL IVP PRN; -LIDOCAINE 1% (10MG/ML) FOR IV START INTRADERMA PRN; -MIDAZOLAM 2 MG/2 ML VIAL IV PRN; -ONDANSETRON 4 MG/2 ML VIAL IVP PRN; +PROPOFOL 10 MG/ML 20 ML VIAL IV ONE; -ROPIVACAINE/EPI/CLONIDINE/KET 50 ML SYRINGE MISCELLANE PRN; -TRANEXAMIC ACID IN NACL,ISO-OS 1,000 MG in SALINE 1 100ML.BAG IV PRN; -TRANEXAMIC ACID IN NACL,ISO-OS 1,000 MG in SALINE 1 100ML.BAG IVPB PRN; -VANCOMYCIN 1,500 MG in SODIUM CHLORIDE 0.9% 500 ML 500 ML IVPB ONE; -fentaNYL (PF) 50 MCG/ML 2 ML AMP IVP PRN; -oxyCODONE ER 10 MG TAB.ER.12H PO PRN
[2024-06-09 14:22] VITALS: RESP 16; TEMP 98.2
[2024-06-09] MEDS: IV FLUID CONTINUATION 1,000 ML IV ONE (14:31)
[2024-06-09] MEDS: LACTATED RINGERS 1,000 ML IV SCH (14:32)
--- NOTE | 2024-06-09 15:46 | P.PCN ---
Date of Procedure: 06/09/24 Procedure(s) Performed: BRIEF HISTORY: Patient is a 68-year-old pleasant white female scheduled for an elective colonoscopy as a part of screening for colon cancer. PROCEDURE PERFORMED: Colonoscopy. PREOPERATIVE DIAGNOSIS: Screening for colon cancer. IV sedation per Anesthesia. PROCEDURE: After informed consent was obtained, the patient, was brought into the endoscopy unit. IV sedation was administered by Anesthesia under continuous monitoring. Digital rectal examination was normal. Initially the Olympus CF-160 flexible video colonoscope was then inserted in the rectum, gradually advanced into the cecum without any difficulty. Careful examination was performed as the scope was gradually being withdrawn. Ileocecal valve and the appendiceal orifice were visualized and appeared normal. Prep was excellent. Mucosa of the cecum, ascending colon, transverse colon, descending colon, sigmoid colon, and rectum appeared normal. Scattered sigmoid diverticulosis retroflexion was performed in the rectum and no lesions were seen. The patient tolerated the procedure well. IMPRESSION: Normal-appearing colon from rectum to cecum. With no evidence of colorectal neoplasia. Scattered diverticulosis. RECOMMENDATIONS: Findings of this examination were discussed with the patient as well as her family. She was advised to have a baseline colonoscopy in 10 years..
[2024-06-09 16:05] VITALS: BP 135/83; PULSE 62
== END ==
LOC: ORWHC2ENDO 13:42
PROVIDERS: ATTEND Internal Medicine Gastroenterology
DX: Z12.11 Encounter for screening for malignant neoplasm of colon (principal); K57.30 Diverticulosis of large intestine without perforation or abscess without bleeding
CPT/HCPCS: J2704; G0121